=== PATIENT | female | born 1930 | race Caucasian/White ===

== ENCOUNTER 2017-04-28 08:50 | Inpatient (IN) | payer OTHER ==
[2017-04-28] MEDS ORDERED: NS 1,000 ML IV ONE (09:11)
--- NOTE | 2017-04-28 09:14 | EDPHY ---
H & P Stated Complaint: multiple syncope. Time Seen by Provider: 04/28/17 08:59 HPI/ROS: CHIEF COMPLAINT: Syncope HISTORY OF PRESENT ILLNESS: The patient is an 86-year-old female with a history of coronary disease with a single stent as well as atrial fibrillation on Eliquis. She is visiting from [place]. She flew in on Wednesday and went hiking and felt great yesterday. This morning she woke up at 5:30 a.m. and had a pre syncopal event while lying in bed. She then felt pressure in her abdomen and went and had a bowel movement. This happened again at 6 o'clock and at 6: 30 a.m.. She then felt better until around 8:00 a.m. when she was eating breakfast with her family at the table when she suddenly felt lightheaded again and this time she fainted. Her daughter caught her. She remained sitting and regained consciousness after about 10 seconds. No seizure-like activity. No vomiting. No bowel movements. The patient states that she did again feel some slight pressure in her abdomen like she could have a bowel movement. She denies headaches. She denies chest pain or shortness of breath. She denies palpitations. EMS found her feeling completely normal and with stable vital signs and EKG. She is currently asymptomatic. REVIEW OF SYSTEMS: Constitutional: denies: chills, fever, recent illness, recent injury EENTM: denies: blurred vision, double vision, nose congestion Respiratory: denies: cough, shortness of breath Cardiac: See HPI Gastrointestinal/Abdominal: denies: abdominal pain, diarrhea, nausea, vomiting, blood streaked stools Genitourinary: denies: dysuria, frequency, hematuria, pain Musculoskeletal: denies: joint pain, muscle pain Skin: denies: lesions, rash, jaundice, bruising Neurological: denies: headache, numbness, paresthesia, tingling, dizziness, weakness Hematologic/Lymphatic: denies: blood clots, easy bleeding, easy bruising Immunologic/allergic: denies: HIV/AIDS, transplant EXAM: GENERAL: Well-appearing, well-nourished and in no acute distress. HEAD: Atraumatic, normocephalic. EYES: Pupils equal round and reactive to light, extraocular movements intact, sclera anicteric, conjunctiva are normal. ENT: TMs normal, nares patent, oropharynx clear without exudates. Moist mucous membranes. NECK: Normal range of motion, supple without lymphadenopathy or JVD. LUNGS: Breath sounds clear to auscultation bilaterally and equal. No wheezes rales or rhonchi. HEART: Regular rate and rhythm without murmurs, rubs or gallops. ABDOMEN: Soft, nontender, normoactive bowel sounds. No guarding, no rebound. No masses appreciated. BACK: No CVA tenderness, no spinal tenderness, step-offs or deformities EXTREMITIES: Normal range of motion, no pitting or edema. No clubbing or cyanosis. NEUROLOGICAL: Cranial nerves II through XII grossly intact. Normal speech, normal gait. 5/5 strength, normal movement in all extremities, normal sensation PSYCH: Normal mood, normal affect. SKIN: Warm, dry, normal turgor, no visible rashes or lesions. Source: Patient, Family, EMS Exam Limitations: No limitations - Personal History Current Tetanus/Diphtheria Vaccine: Yes Current Tetanus Diphtheria and Acellular Pertussis (TDAP): Yes - Medical/Surgical History Hx Asthma: No Hx Chronic Respiratory Disease: No Hx Diabetes: No Hx Cardiac Disease: No Hx Renal Disease: No Hx Cirrhosis: No Hx Alcoholism: No Hx HIV/AIDS: No Hx Splenectomy or Spleen Trauma: No Other PMH: PMH: stents, a-fib, - Family History Significant Family History: No pertinent family hx - Social History Smoking Status: Never smoked Alcohol Use: Sober Drug Use: None Constitutional: Initial Vital Signs Temperature (C) 36.7 C 04/28/17 08:54 Heart Rate 54 L 04/28/17 08:54 Respiratory Rate 18 04/28/17 08:54 Blood Pressure 176/86 H 04/28/17 08:54 O2 Sat (%) 97 04/28/17 08:54 O2 Delivery Mode Room Air Allergies/Adverse Reactions: Sulfa (Sulfonamide Antibiotics) Allergy (Verified 04/28/17 09:02) Home Medications: Medication Instructions Recorded Apixaban [Eliquis] 5 mg PO BID 04/28/17 Aspirin [Aspirin 81mg (*)] 81 mg PO DAILY 04/28/17 Atenolol [Tenormin 25 mg (*)] 25 mg PO DAILY 04/28/17 Benazepril HCl [Lotensin (*)] 20 mg PO DAILY 04/28/17 Diltiazem Cd [Cardizem ER 120 MG 120 mg PO DAILY 04/28/17 (*)] Ezetimibe [Zetia 10 MG (*)] 10 mg PO HS 04/28/17 Herbals/Supplements -Info Only 1 ea PO DAILY 04/28/17 LORazepam [Ativan (*)] 0.5 mg PO DAILY PRN 04/28/17 Pravastatin Sodium 10 mg PO HS 04/28/17 Medical Decision Making - Diagnostics EKG Interpretation: An EKG obtained and was read and documented in trace view. Please see trace view for full reading and report. Sinus rhythm bradycardic, no acute ischemic changes Imaging: Discussed imaging studies w/ house calls nurse Radiologist ED Course/Re-evaluation: We discussed the lab and imaging results which are reassuring. The patient has been bradycardic occasionally into the 40s. Currently heart rate is 55 pressure blood pressures remained stable. We discussed the fact that this may be medication related. She is on atenolol and diltiazem. Her embedded hardware engineer in [place] noticed her slow heart rate in the past but she has never had syncopal events before. I recommended admission to the hospital for further observation and adjustment. Patient and family were initially hesitant but then agreed. 10:50 a.m. I discussed the case with Marge Salmon who agrees to admission to the PCU under Dr WILLIAM Lizama 11:10 a.m. the patient had a bradycardic episode down to the 20s and felt syncopal again but did not lose consciousness. It lasted for couple of seconds and was captured on the monitor Differential Diagnosis: Partial list of the Differential diagnosis considered include but were not limited to; bradycardia, syncope and although unlikely based on the history and physical exam, I also considered aneurysm, dissection, CVA, acute coronary disease. I discussed these differential diagnoses and the plan with the patient as well as the usual and expected course. The patient understands that the diagnosis is provisional and that in medicine we are not always correct and that further workup is often warranted. Usual and customary warnings were given. All of the patient's questions were answered. The patient was instructed to return to the emergency department should the symptoms at all worsen or return, otherwise to followup with the physician as we discussed. - Data Points Laboratory Results: Laboratory Results 04/28/17 09:20 04/28/17 09:20 Medications Given: Ezetimibe (Zetia) 10 mg PO HS PRAKASH Stop: 10/25/17 20:59 Last Admin: 04/28/17 20:52 Dose: 10 mg Lorazepam (Ativan) 0.5 mg PO DAILY PRN PRN Reason: ANXIETY/FLYING Stop: 10/25/17 14:23 Last Admin: 04/28/17 22:18 Dose: 0.5 mg Pravastatin Sodium (Pravachol) 10 mg PO HS PRAKASH Stop: 10/25/17 20:59 Last Admin: 04/28/17 20:52 Dose: 10 mg Discontinued Medications Sodium Chloride (Ns) 1,000 mls @ 0 mls/hr IV EDNOW ONE; Wide Open PRN Reason: Protocol Stop: 04/28/17 09:12 Last Admin: 04/28/17 10:13 Dose: 1,000 mls Dobutamine HCl 500 mg/ (Dextrose) 250 mls @ 0 mls/hr IV CONT PRAKASH; Titrate PRN Reason: Protocol Stop: 10/25/17 18:29 Last Admin: 04/28/17 18:36 Dose: 250 mls Departure - Departure Disposition: [facility] Acute Clinical Impression: Bradycardia Syncope Qualifiers: Syncope type: unspecified Qualified Code(s): R55 - Syncope and collapse Condition: Fair
--- NOTE | 2017-04-28 09:19 | CPEKG ---
Heart Rate: 51 RR Interval: 1176 P-R Interval: 188 QRSD Interval: 82 QT Interval: 476 QTC Interval: 439 P [place]: 55 QRS [place]: -19 T Wave [place]: 41 EKG Severity - OTHERWISE NORMAL ECG - EKG Impression: SINUS RHYTHM EKG Impression: BORDERLINE LEFT AXIS DEVIATION Electronically Signed By: Gurdeep Jamison 28-Apr-2017 09:46:48
[2017-04-28 09:23] LABS: % IMMATURE GRANULYOCYTES 0.2 % (0.0-1.1); ABSOLUTE IMMATURE GRANULOCYTES 0.01 10^3/uL (0.00-0.10); ADD DIFF? NO; ADD MORPH? NO; ADD SCAN? NO; ATYPICAL LYMPHOCYTE FLAG 10 (0-99); FRAGMENT RBC FLAG 0 (0-99); HEMATOCRIT 44.2 % (38.0-47.0); HEMOGLOBIN 15.6 g/dL (12.6-16.3); LEFT SHIFT FLG 0 (0-99); LIPEMIA HEMOLYSIS FLAG 90 (0-99); MEAN CELL HEMOGLOBIN 32.3 pg (27.9-34.1); MEAN CELL HEMOGLOBIN CONCENTR. 35.3 g/dL (32.4-36.7); MEAN CELL VOLUME 91.5 fL (81.5-99.8); MEAN PLATELET VOLUME 11.7 fL (8.7-11.7); PLATELET CLUMPS FLAG 0 (0-99); PLATELET COUNT 225 10^3/uL (150-400); RED BLOOD CELL COUNT 4.83 10^6/uL (4.18-5.33); RED CELL DISTRIBUTION WIDTH 12.6 % (11.5-15.2)
[2017-04-28 09:32] LABS: INR 1.26 (0.83-1.16); PROTIME(PATIENT) 15.8 SEC (12.0-15.0)
[2017-04-28 09:33] LABS: APTT 32.4 SEC (23.0-38.0)
[2017-04-28 09:37] LABS: ALANINE AMINOTRANSFERASE 36 IU/L (9-52); ALBUMIN 4.8 g/dL (3.5-5.0); ALKALINE PHOSPHATASE 70 IU/L (38-126); ANION GAP 14 mEq/L (8-16); ASPARTATE AMINOTRANSFERASE 30 IU/L (14-46); BILIRUBIN,TOTAL 0.6 mg/dL (0.1-1.4); BILIRUBIN-UNCONJUGATED 0.6 mg/dL (0.0-1.1); CALCIUM 9.5 mg/dL (8.5-10.4); CARBON DIOXIDE 25 mEq/l (22-31); CHLORIDE 103 mEq/L (97-110); CREATININE 0.7 mg/dL (0.6-1.0); GLOMERULAR FILTRATION RATE > 60; GLUCOSE 94 mg/dL (70-100); POTASSIUM 3.9 mEq/L (3.5-5.2); SODIUM 142 mEq/L (134-144); TOTAL PROTEIN 7.4 g/dL (6.3-8.2)
[2017-04-28] MEDS ORDERED: IOPAMIDOL (ISOVUE 370) 100 ML BTL IV ONE (09:42)
[2017-04-28 09:48] LABS: TROPONIN I < 0.012 ng/mL (0.000-0.034)
[2017-04-28] MEDS ORDERED: ONDANSETRON 4 MG/2 ML VIAL IVP PRN (11:24)
[2017-04-28] MEDS ORDERED: ACETAMINOPHEN 325 MG TAB PO PRN (11:24)
[2017-04-28] MEDS ORDERED: ONDANSETRON DISINTEGRATING 4 MG TAB PO PRN (11:24)
[2017-04-28] MEDS ORDERED: ATROPINE SULFATE 1 MG/10 ML SYR IVP PRN (14:26)
[2017-04-28] MEDS ORDERED: ATROPINE SULFATE 1 MG/10 ML SYR ONE (14:55)
--- NOTE | 2017-04-28 15:25 | GHP ---
[f rep st] HISTORY AND PHYSICAL DATE OF ADMISSION: 04/28/2017 CHIEF COMPLAINT: Syncope. HISTORY OF PRESENT ILLNESS: An 86-year-old female with a history of atrial fibrillation status post cardioversion in June of 2016, on Eliquis, atenolol and diltiazem CD, who presents after arriving from [place] visiting her daughter 48 hours ago. The patient reports she was in her normal state of health yesterday, took a long walk with her daughter without notable dyspnea, palpitations, chest pa in, dizziness or nausea. The patient ate a normal dinner, went to sleep. When she woke up this morn ing, she had an uncomfortable sensation in her abdomen, felt like she was going to pass out but did n ot, then went and passed a very large soft stool and felt better. Then commenced to go down to the [facility] table, discussed her symptoms with her daughter, began to eat breakfast and take her daily m edications when the patient lost consciousness, witnessed in front of her daughter. She came to with in seconds, and was not disoriented when she came to. Denied any associated chest pain, denied palpi tations, denied shortness of breath, denied nausea, denied vision changes. The patient reports that she had atrial fibrillation with rapid rates that she could feel, which led ultimately to her cardiov ersion in June. Since that time, reports that she had a couple of episodes of what felt to be pal pitations that were self-limited, lasting only minutes. The patient's watch crystal edge grinder was aware, sent h er with a Holter monitor, which apparently showed some bradycardia while she slept, otherwise no conc erning rhythm abnormalities. The patient denies any active symptoms of heart failure, denies orthopn ea, lower extremity edema, PND, or loss of energy. [facility] patient described sensation of upset stomach, and then had witnessed bradycardic episode with her heart rate slowing in sinus from the 60s down into the 20s with near loss of consciousness. The pat ient then recovered both her heart rate and consciousness while hooked to the core cart on pacer pads . The patient came to, was not confused, denied chest pain, denied any previous associated symptoms. PAST MEDICAL HISTORY: 1. Atrial fibrillation, status post cardioversion June 2016, on anticoagulation. 2. Restless legs syndrome. 3. Bladder incontinence, chronic. SOCIAL HISTORY: Patient lives in [place]. Denies tobacco, alcohol or illicit drugs. FAMILY HISTORY: Negative for any known cardiac arrhythmias. ADVANCED DIRECTIVES: Patient is full cor, full tube. Her daughter would be her medical decision alvaro er. REVIEW OF SYSTEMS: A 10-point review of systems is negative with the exception of that reported in t he HPI. PHYSICAL EXAMINATION: VITAL SIGNS: Blood pressure 153/73, heart rate 64, respiratory rate 18, satur ating 97% on room air, 36.7. GENERAL: This is a thin elderly female, lying flat in bed. HEENT: No table for dry mucous membranes. Eye exam is negative for any icterus. CARDIAC: Patient is regular rhythm, bradycardic, with a quiet systolic murmur heard best at the left upper sternal border. PULMO NARY: Patient is clear to auscultation bilaterally. No rales, rhonchi, or wheezing with good respir atory effort. GASTROINTESTINAL: Positive bowel sounds. Abdomen is soft and nontender. MUSCULOSKEL ETAL: Negative for any lower extremity edema. SKIN: Negative for any rashes. NEUROLOGIC: She is alert and oriented x3. PSYCHIATRIC: She is pleasant and cooperative on interview and examination. DATA: EKG, which I personally reviewed and interpreted, shows sinus rhythm, leftward axis deviation, with no acute ST-T changes. LABORATORY: White count 4.8, hematocrit 44.2, platelets of 223, troponin less than 0.012, creatinine of 0.7, TSH is 3.2. ASSESSMENT AND PLAN: This is an 86-year-old female, presenting with syncope. 1. Acute syncope, suspect secondary to bradycardia after the episode I witnessed in the emergency de partment. Causes of bradycardia I suspect are likely related to her atenolol and long-acting diltiaz em. Even during her bradycardia episode the patient's QRS complex was narrow and normal. The patien bethany unfortunately took both her atenolol and diltiazem CD this morning. We will obviously hold those u mirela admission. I have asked the watch crystal edge grinder to consult and monitor. Patient has transcutaneous pac ing pads on, and we will make sure she has atropine at the bedside in case we have additional episode s while inpatient. Patient will be on telemetry overnight. 2. Symptomatic bradycardia, as described above. EKG shows normal sinus with narrow QRS complex, no acute ST-T changes. My suspicion for cardiac ischemia is low. TSH is normal. Will order a transtho racic echocardiogram and consult Cardiology for any additional management recommendations. 3. Restless leg. Will continue patient's home medications once reconciled. 4. Chronic bladder incontinence. The patient does not have any symptoms of dysuria, no leukocytosis or fever. Low suspicion that a urinary tract infection is contributing to her presentation. PROPHYLAXIS: Patient is on chronic anticoagulation, which we will continue. DIET: Cardiac. DISPOSITION: I expect in less than 2 midnights, if the patient remains stable on monitoring overnigh t and we see improvement in her heart rates off medications. I have discussed the case with the [facility] room physician as well as Cardiology. Patient will be triaged to the PCU for monitoring and ca rdiac care. /[id number]/MODL
--- NOTE | 2017-04-28 17:42 | ECHO ---
[email or web address] [address] [address] Main: [phone] Fax: Transthoracic Echocardiogram Name: ORVILLE EATON MR#: [id number] Study Date: 04/28/2017 Study Time: 04:19 PM Date of : 1930 Age: 86 year(s) Height: 162.6 cm (64 in.) Weight: 67.13 kg (148 lb.) BSA: 1.72 m2 Gender: Female Examination: Echo Indication: Bradycardia Image Quality: Contrast: Requested by: Dariela Lizama BP: 119 mmHg/68 mmHg Heart Rate: Rhythm: Indication: Bradycardia Procedure Staff Rug Dyer: Dave Corral Reading Physician: Sumit Villanueva Requesting Provider: Conclusions: Normal size left ventricle. EF is 70 %. The left atrium is moderately dilated. Mild mitral valve leaflet calcification is present. Mild mitral valve regurgitation is present. The aortic valve is tri-leaflet. Mild aortic cusp calcification is noted. Mild aortic valve regurgitation is present. No old studies for comparison Measurements: Chambers Valvular Assessment AV/MV Valvular Assessment TV/PV Normal Normal Normal Name Value Range Name Value Range Name Value Range Ao Sheryl (MM): 3.3 cm (2.2 cm-3.7 AV Vmax: 1.36 m/s (1 m/s-1.7 TR Vmax: 2.85 mm/s ( - ) cm) m/s) TR PGmax: 32 mmHg ( - ) IVSd (2D): 1.0 cm (0.6 cm-1.1 AV maxP mmHg ( - ) syst. PAP: 37 mmHg ( - ) cm) LVOT Vmax: 0.83 m/s (0.7 m/s-1.1 PV Vmax: 0.59 m/s (0.6 m/s-0.9 LVDd (2D): 4.4 cm (3.9 cm-5.3 m/s) m/s) cm) AR (PHT): 842 ms ( - ) PV PGmax: 1 mmHg ( - ) LVDs (2D): 2.6 cm (2.1 cm-4 MV E Vmax: 0.95 m/s ( - ) cm) MV A Vmax: 0.33 m/s ( - ) LVPWd (2D): 1.1 cm ( - ) MV E/A: 2.88 ( - ) LVEF (2D): 70 (>=54 %) Continued Measurements: Chambers Valvular Assessment AV/MV Valvular Assessment TV/PV Name Value Name Value Name Value Patient: ORVILLE EATON Study Date: 04/28/2017 Page 1 of 2 04:19 PM LADs Lon.1 cm MV E/E' Septal: 16.00 CVP (est.): 5 mmHg LA Area: 24.0 cm2 MV E/E' Lateral: 10.60 LA Volume: 76 ml AR Vmax: 3.50 cm/s LA Volume Index: 44.2 ml/m2 Findings: Left Ventricle: Normal size left ventricle. No LV hypertrophy. Normal global systolic LV function. EF is 70 %. No regional wall motion abnormality. Diastolic dysfunction is present. . Right Ventricle: Normal size right ventricle. Normal RV function. Left Atrium: The left atrium is moderately dilated. Right Atrium: The right atrium is normal in size. Mitral Valve: Mild mitral valve leaflet calcification is present. Mild mitral valve regurgitation is present. Aortic Valve: The aortic valve is tri-leaflet. Mild aortic cusp calcification is noted. Mild aortic valve regurgitation is present. Tricuspid Valve: Mild tricuspid regurgitation is present. The pulmonary artery pressure is normal. Pulmonic Valve: The pulmonic valve is normal in appearance and function. Aorta: The aorta is normal. Pericardium: No pericardial effusion. (No Signature Object) Patient: ORVILLE EATON Study Date: 04/28/2017 Page 2 of 2 04:19 PM [id number]
[2017-04-28] MEDS ORDERED: DOBUTamine 500 MG in D5W 250 ML IV SCH (18:30)
--- NOTE | 2017-04-28 18:37 | PDPROPOC ---
Sedation Plan of Care Sedation Plan of Care: vital signs stable, mental status noted, patient educated of risks, benefits, alternatives, patient can tolerate sedation ASA Classification: ASA 3 Planned drugs: fentanyl, midazolam Mallampati Score: Class 3 Mallampati Reference Image: Patient passed 3-3-2 rule?: Yes
[2017-04-28 20:44] LABS: COLOR YELLOW; LEUKOCYTE ESTERASE,URINE 2+ (NEGATIVE); NITRITE,URINE POSITIVE (NEGATIVE)
[2017-04-28 20:49] LABS: BACTERIA 1+ /hpf (NONE SEEN); MUCUS TRACE /lpf (NONE-1+); WBC,URINE 50-182 /hpf (0-3)
[2017-04-28] MEDS: PRAVASTATIN SODIUM 10 MG TAB PO SCH (20:52)
[2017-04-28] MEDS: EZETIMIBE 10 MG TAB PO SCH (20:52)
[2017-04-28] MEDS ORDERED: APIXABAN 5 MG TAB PO SCH (21:00)
--- NOTE | 2017-04-28 21:02 | GCON ---
[f rep st] CONSULTATION DATE OF CONSULTATION: 04/28/2017 HISTORY OF PRESENT ILLNESS: This is an 86-year-old female with a past history of atrial fibrillation , status post cardioversion in June of 2016, on Eliquis, atenolol, and diltiazem CD, who is dominga hassan her daughter from [facility]. The patient reports that she was in her normal state of healt h yesterday and took a long walk without notable dyspnea, palpitations, chest pain, dizziness, or corrina sea. She had a normal dinner and went to bed. When she woke up in the morning, she had an uncomfort able sensation in her abdomen and felt like she was going to pass out, but she did not, and then had a large bowel movement. She felt better after that. Then, her daughter and son-in-law woke up. The y were discussing it at the breakfast table when she decided to write down her symptoms and what had transpired until then. At this point in time, she lost consciousness in front of her daughter and th en came to within moments. She was not disoriented. Within 5 minutes, she was back to feeling lea l. She denied any chest pain, palpitations, or shortness of breath associated. There has been no re cent change in medications. She came to the emergency room, where we noted another episode of slow h eart rate and dizziness, but she did not pass out. Later on this evening, the patient was talking to me and discussing the need for a pacemaker, at which point in time she started saying that she was n ot feeling very well. The heart rate had dropped from a baseline of 56 to 39. Then, she went into a systole, at which point in time, I started CPR. She lost consciousness. Within moments of starting CPR, she came to and was back to being normal. The telemonitor recorded asystole, followed by recove ry of the heart rate. The patient denies any current chest pain or palpitations. PAST MEDICAL HISTORY: AFib, status post cardioversion in 2016, on Eliquis, restless neck syndrome, s tatus post PCI with stent. SOCIAL HISTORY: Born and brought up in [facility]. Lives in [place], [place]. Denies alco hol use, tobacco abuse, or illicit drugs. FAMILY HISTORY: Negative for any cardiac issues. REVIEW OF SYSTEMS: Other than the above, negative. ALLERGIES: None. PHYSICAL EXAMINATION: VITAL SIGNS: Blood pressure of 153/73, pulse of 64, respiratory rate of 18. GENERAL: The patient is a thin, elderly female, lying flat in bed. HEENT: Notable for dry mucous m embranes. Eye exam negative for any icterus. CHEST: Good air entry bilaterally, equal. No rales, rhonchi, or rub. HEART: S1, S2 regular. Systolic ejection murmur noted. ABDOMEN: Soft, nontender , nondistended. Bowel sounds present. EXTREMITIES: No edema. No clubbing. NEUROLOGIC: Alert and oriented x3. PSYCHIATRIC: Pleasant and cooperative. DIAGNOSTIC DATA: EKG shows a sinus rhythm and left axis deviation; no ST changes. Telemonitor shows episodes of bradycardia and asystole, with good recovery. LABORATORY DATA: White count is normal. IMPRESSION AND PLAN: This is an 86-year-old female with episodes of syncope associated with asystole . She has been on the same dose of beta kimi and calcium channel kimi. Despite that, she is b eginning to have these episodes. 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 In view of this, t he patient needs a pacemaker. I have explained the risks and benefit of the procedure. I am especia lly concerned about her being on Eliquis, and I have explained to her the risks of the procedure. Maria Isabel valentine understands it, and is agreeable to it. We will implant a dual-chamber pacemaker in the morning. /[id number]/MODL
[2017-04-28] MEDS: LORazepam 0.5 MG TAB PO PRN (22:18)
[2017-04-29 03:26] LABS: % IMMATURE GRANULYOCYTES 0.2 % (0.0-1.1); ABSOLUTE IMMATURE GRANULOCYTES 0.01 10^3/uL (0.00-0.10); ADD DIFF? NO; ADD MORPH? NO; ADD SCAN? NO; ATYPICAL LYMPHOCYTE FLAG 0 (0-99); FRAGMENT RBC FLAG 0 (0-99); HEMATOCRIT 35.2 % (38.0-47.0); HEMOGLOBIN 11.7 g/dL (12.6-16.3); LEFT SHIFT FLG 0 (0-99); LIPEMIA HEMOLYSIS FLAG 80 (0-99); MEAN CELL HEMOGLOBIN 30.4 pg (27.9-34.1); MEAN CELL HEMOGLOBIN CONCENTR. 33.2 g/dL (32.4-36.7); MEAN CELL VOLUME 91.4 fL (81.5-99.8); MEAN PLATELET VOLUME 11.6 fL (8.7-11.7); PLATELET CLUMPS FLAG 20 (0-99); PLATELET COUNT 162 10^3/uL (150-400); RED BLOOD CELL COUNT 3.85 10^6/uL (4.18-5.33); RED CELL DISTRIBUTION WIDTH 12.6 % (11.5-15.2)
[2017-04-29 03:42] LABS: ALANINE AMINOTRANSFERASE 36 IU/L (9-52); ALBUMIN 3.1 g/dL (3.5-5.0); ALKALINE PHOSPHATASE 52 IU/L (38-126); ANION GAP 9 mEq/L (8-16); ASPARTATE AMINOTRANSFERASE 21 IU/L (14-46); BILIRUBIN,TOTAL 0.5 mg/dL (0.1-1.4); CALCIUM 8.8 mg/dL (8.5-10.4); CARBON DIOXIDE 23 mEq/l (22-31); CHLORIDE 110 mEq/L (97-110); CREATININE 0.7 mg/dL (0.6-1.0); GLOMERULAR FILTRATION RATE > 60; GLUCOSE 100 mg/dL (70-100); POTASSIUM 3.4 mEq/L (3.5-5.2); SODIUM 142 mEq/L (134-144); TOTAL PROTEIN 5.7 g/dL (6.3-8.2)
[2017-04-29 04:07] LABS: INR 1.23 (0.83-1.16); PROTIME(PATIENT) 15.5 SEC (12.0-15.0)
[2017-04-29 04:08] LABS: APTT 28.1 SEC (23.0-38.0)
[2017-04-29] MEDS ORDERED: BACITRACIN IRRIGATION/NS 50,000 UNITS/1,000 ML BTL IRR ONE (06:00)
[2017-04-29] MEDS ORDERED: ceFAZolin 2 GM/SWFI 2 GM/20 ML SYR IVP ONE (06:00)
[2017-04-29] MEDS ORDERED: NS 1,000 ML IV ONE (06:00)
--- NOTE | 2017-04-29 07:36 | PDPROPOC ---
Sedation Plan of Care Sedation Plan of Care: mental status noted, patient educated of risks, benefits , alternatives, patient can tolerate sedation ASA Classification: ASA 3 Planned drugs: fentanyl, midazolam Mallampati Score: Class 3 Mallampati Reference Image: Patient passed 3-3-2 rule?: Yes
[2017-04-29] MEDS ORDERED: fentaNYL 100 MCG/2 ML INJ ONE (07:37)
[2017-04-29] MEDS ORDERED: LIDOCAINE 1% 300 MG/30 ML SDV ONE (07:37)
[2017-04-29] MEDS ORDERED: MIDAZOLAM 2 MG/2 ML VIAL ONE (07:37)
[2017-04-29] MEDS ORDERED: LIDO/EPI 1% **for epidural** 30 ML SDV ONE (07:38)
[2017-04-29] MEDS ORDERED: BUPIVACAINE 0.5% 30 ML SDV ONE (07:38)
[2017-04-29] MEDS ORDERED: IOPAMIDOL (ISOVUE-300) 150 ML BTL ONE (07:39)
[2017-04-29] MEDS ORDERED: Herbals/Supplements -Info Only PO SCH (09:00)
--- NOTE | 2017-04-29 09:18 | CPEKG ---
Heart Rate: 60 RR Interval: 1000 P-R Interval: 212 QRSD Interval: 82 QT Interval: 460 QTC Interval: 460 QRS [place]: -18 T Wave [place]: 14 EKG Severity - ABNORMAL ECG - EKG Impression: ATRIAL-PACED RHYTHM Electronically Signed By: Sterling Trimble 29-Apr-2017 17:37:47
[2017-04-29] MEDS: DILTIAZEM CD 120 MG CAP PO SCH (11:24)
[2017-04-29] MEDS: BENAZEPRIL HCL 20 MG TAB PO SCH (11:24)
[2017-04-29] MEDS: ATENOLOL 25 MG TAB PO SCH (11:24)
--- NOTE | 2017-04-29 11:32 | CPEKG ---
Heart Rate: 67 RR Interval: 896 P-R Interval: 204 QRSD Interval: 78 QT Interval: 432 QTC Interval: 456 P [place]: 69 QRS [place]: -2 T Wave [place]: 35 EKG Severity - NORMAL ECG - EKG Impression: SINUS RHYTHM EKG Impression: Q waves inferior and anteriorly, consider old inferior and anterior MIs. Electronically Signed By: Sterling Trimble 29-Apr-2017 17:37:28
[2017-04-29] MEDS: ASPIRIN 81 MG CHEWABLE TAB PO SCH (13:22)
--- NOTE | 2017-04-29 14:57 | HOSPPROG ---
Hospitalist Progress Note Assessment/Plan: # Acute Tachy-lalo syndrome - pt hostrically cardioverted for rapid AFib presents yesterday with syncope 2/2 bradycardia patient with two monitored episodes one of bradycardia in 20's and second of asytole requiring brief CPR TELE (personally reviewed and interpreted) sinus 70's overnight on dobutamine - oxygen saturations 94% on RA creatinine normal this am - NPO for pacemaker today - cardiology wants Atenolol and diltiazem continued # Atrial fibrillation - will resume eliquis tonight # chronic urinary incontinence - UA abnormal on admit - awaiting culture results # restless leg syndrome - cont home meds # proph - eliquis # diet- cardiac # dispo - > 2MN as requires post pacemaker monitoring I have discussed the case with Cardiology - pacemaker today - continue home meds otherwise Subjective: feels tired- constipated Objective: Vital Signs Temp Pulse Resp BP Pulse Ox 36.5 C 68 21 H 145/68 H 96 04/29/17 10:42 04/29/17 13:00 04/29/17 10:42 04/29/17 13:00 04/29/17 10:42 Laboratory Results 04/29/17 03:20 04/29/17 03:20 04/28/17 04/29/17 04/30/17 05:59 05:59 05:59 Intake Total 1950 Output Total 1750 850 Balance 200 -850 PT 15.5 SEC (12.0-15.0) H 04/29/17 03:20 INR 1.23 (0.83-1.16) H 04/29/17 03:20 - Physical Exam Constitutional: no apparent distress Eyes: anicteric sclera Ears, Nose, Mouth, Throat: moist mucous membranes Cardiovascular: regular rate and rhythym, systolic murmur Respiratory: no respiratory distress Gastrointestinal: normoactive bowel sounds Genitourinary: no bladder fullness Skin: warm Musculoskeletal: No asymmetric calves Neurologic: AAOx3 Psychiatric: interacting appropriately, not anxious Lymph, Heme, Immunologic: no cervical LAD ICD10 Worksheet Patient Problems: Problems Problem Status Onset Bradycardia Acute Syncope Acute
[2017-04-29] MEDS ORDERED: PROTOCOL POTASSIUM 1 DOSE MISC PRN (14:59)
[2017-04-29] MEDS ORDERED: POTASSIUM CL 10 MEQ TAB PO ONE ×2 (16:08→21:54)
--- NOTE | 2017-04-29 16:35 | EPPROC ---
Electrophysiology Procedure Note: PROCEDURE PERFORMED: Implantation of an A/V Pacemaker Fluoroscopy INDICATION: This is a 86 yr old with episodes of syncope. She was admitted and her episodes correlated with asystole lasting upto 10sec. In view of this it was decided to implant dual chamber pacemaker. PROCEDURE NOTE: Patient presented to the cardiac catheterization laboratory in a fasting, post absorptive state. Cardiac cheesemaking laborer nurse administered moderate sedation. The left infraclavicular area was prepped and draped in the usual sterile fashion. Lidocaine plus bupivacaine was used for local anesthesia. Left subclavian venography was performed by injection of iodinated contrast into the left antecubital vein. This was done to assure patency of the vein and also to assess for any anatomical aberrations. Using a combination of blunt and sharp dissection and electrocautery, the dissection was carried down to the prepectoral fascia. All bleeding was controlled with electrocautery. Fluoroscopy was utilized during the entire procedure for venous access and placement of the leads. Using the usual technique, left cephalic vein was accessed and a glidewire was placed. Through this initially a 9F and later a 7F sheath was passed. Placement of the guidewires into the venous system was confirmed by low- pressure blood return and also by visualizing the guidewires advancing into the inferior vena cava. A purse string suture was applied around the guidewires. An active fixation ventricular lead was advanced into the right ventricular apex and screwed in place. An active fixation atrial lead was advanced into the right atrial appendage and screwed in place. The peel away sheaths were removed. Pacing thresholds, sensing parameters and lead impedances were measured. There was no diaphragmatic stimulation at maximum output. The leads were sutured to the prepectoral fascia with 3 nonabsorbable sutures each. The pocket was created and it was flushed using antibiotic solution. It was inspected for any bleeding. The leads were attached to the pacemaker securely. The pacemaker was inserted into the pocket and secured in place with a nonabsorbable suture. Fluoroscopy was performed in PATEL and SCARLETT planes to verify right-sided placement of the leads. Also fluoroscopy of the pacemaker pocket was performed. The pacemaker pocket was closed in 3 layers with absorbable vicryl sutures. Steristrips were placed. Appropriate dressing was applied. The patient left the cardiac catheterization laboratory in stable condition. Serial Numbers: Device: St Neto Assurity MRI SN [id number] Atrial Lead: St Neto Tendril STS SN [id number] Ventricular Lead: St Neto Tendril STS SN [id number] Stimulation Thresholds & Impedance Measurements: Atrial Lead 2.7mV, 1@0.5ms, 405Ohms Ventricular Lead 12.1mV, 0.4@0.5ms, 610Ohms Dirk Pacing Parameters Pacing mode: DDD Lower rate: 60 Upper tracking rate: 130 Upper sensor rate: 130 Patient Problems: Problems Problem Status Onset Bradycardia Acute Syncope Acute
--- NOTE | 2017-04-29 17:27 | PDMN ---
Medical Necessity Medical necessity: Change to IP, as of 04/29/17, per MD, for ongoing eval/tx of acute tachy/lalo syndrome s/p cardioversion for rapid AFIB & 2 monitored episodes of bradycardia & asystole requiring brief CPR & post pacemaker monitoring; hx AFIB; per progress note & order 04/29/17
[2017-04-29 19:40] LABS: POTASSIUM 3.9 mEq/L (3.5-5.2)
[2017-04-29] MEDS: APIXABAN 5 MG TAB PO SCH (20:21)
[2017-04-29] MEDS: EZETIMIBE 10 MG TAB PO SCH (20:21)
[2017-04-29] MEDS: PRAVASTATIN SODIUM 10 MG TAB PO SCH (20:22)
[2017-04-29] MEDS: LORazepam 0.5 MG TAB PO PRN (22:06)
[2017-04-30 05:07] LABS: % IMMATURE GRANULYOCYTES 0.3 % (0.0-1.1); ABSOLUTE IMMATURE GRANULOCYTES 0.02 10^3/uL (0.00-0.10); ADD DIFF? NO; ADD MORPH? NO; ADD SCAN? NO; ATYPICAL LYMPHOCYTE FLAG 0 (0-99); FRAGMENT RBC FLAG 0 (0-99); HEMATOCRIT 40.3 % (38.0-47.0); HEMOGLOBIN 13.6 g/dL (12.6-16.3); LEFT SHIFT FLG 0 (0-99); LIPEMIA HEMOLYSIS FLAG 80 (0-99); MEAN CELL HEMOGLOBIN 31.1 pg (27.9-34.1); MEAN CELL HEMOGLOBIN CONCENTR. 33.7 g/dL (32.4-36.7); MEAN PLATELET VOLUME 12.2 fL (8.7-11.7); PLATELET CLUMPS FLAG 0 (0-99); PLATELET COUNT 195 10^3/uL (150-400); RED BLOOD CELL COUNT 4.38 10^6/uL (4.18-5.33); RED CELL DISTRIBUTION WIDTH 12.7 % (11.5-15.2)
[2017-04-30 05:34] LABS: ANION GAP 8 mEq/L (8-16); CARBON DIOXIDE 25 mEq/l (22-31); CHLORIDE 111 mEq/L (97-110); CREATININE 0.7 mg/dL (0.6-1.0); GLOMERULAR FILTRATION RATE > 60; GLUCOSE 81 mg/dL (70-100); POTASSIUM 4.3 mEq/L (3.5-5.2); SODIUM 144 mEq/L (134-144)
[2017-04-30] MEDS: ASPIRIN 81 MG CHEWABLE TAB PO SCH (08:51)
[2017-04-30] MEDS: ATENOLOL 25 MG TAB PO SCH (08:51)
[2017-04-30] MEDS: APIXABAN 5 MG TAB PO SCH (08:51)
[2017-04-30] MEDS: BENAZEPRIL HCL 20 MG TAB PO SCH (08:53)
[2017-04-30] MEDS: DILTIAZEM CD 120 MG CAP PO SCH (08:55)
--- NOTE | 2017-04-30 10:04 | ASMTCMCOM ---
CM Note CM Note Notes: Pt is a 86 y/o female admitted w/ syncope and bradycardia. PT and OT have been ordered. CM awaiting recommendations from therapies. Needs are TBD at this time. CM available for d/c needs. Date Signed: 04/30/2017 10:03 AM Electronically Signed By:CRISTIAN Monzon
--- NOTE | 2017-04-30 11:02 | PDCARPN ---
Cardiology Progress Note Assessment/Plan: Assessment: Seen post Pacemaker placement. Doing well with no incision site bleeding. Mildly tender, with no induration or ecchymosis. Dual Chamber St Neto Pacemaker placed yesterday 04/29/17 by Sheng Mclaughlin MD Pacemaker Restrictions for [address] Mclaughlin. No lifting, pushing, pulling greater than 10 pounds, Avoid getting site and dressing wet, No use of left arm above shoulder level. Pacemaker St Neto- Dual Chamber pacemaker. Follow up at [facility] in one week for pacemaker check and wound check. at 12:45 at [facility]. BP check at that time. Follow up with Tucking Machine Operator in [facility] upon return home. Continue all medications. No medication changes per Dr Mclaughlin. Plan: Ok for discharge post Pacemaker placement. Follow up as outlined above. 04/30/17 10:58 Subjective: I feel great today. Up in room with no dizziness or lightheadedness. Mild PM site discomfort. Daughter at bedside. Left arm restrictions reviewed with she and Cecilia. She has been up to BR and walking with no problems. Reviewed/Discussed With: family Time Spent With Patient: 30 minutes. Objective: Vital Signs (8 Hrs) Temp Pulse Resp BP Pulse Ox 04/30/17 08:00 36.8 C 62 18 157/83 H 96 04/30/17 04:00 36.9 C 60 16 156/78 H 97 Intake/Output (24 Hrs) 04/29/17 04/30/17 05/01/17 05:59 05:59 05:59 Intake Total 3000 Output Total 2500 Balance 500 Intake: Oral (ml) 3000 Output: Urine (ml) 2500 Bedside Commode 1800 Toilet 700 Other: Number of Voids Toilet 2 Number of Stools Bedside Commode 1 Result Diagrams: 04/30/17 03:31 04/30/17 03:31 - Physical Exam Cardiovascular: regular rate and rhythm, no murmurs, no rubs, no gallops Peripheral Pulses: 2+: dorsalis-pedis (R), dorsalis-pedis (L) Respiratory: clear to auscultate bilat, no crackles, no wheezes Skin: warm, no edema, other (left pec site with no bleeding, induration, mild tenderness. Dressing in place. ) Neurologic: AAOx3 Psychiatric: cooperative, interactive ICD10 Worksheet Patient Problems: Problems Problem Status Onset Bradycardia Acute Dual chamber Pacemaker Acute Syncope Acute
[2017-04-30 11:39] VITALS: BP 144/81; PULSE 63; RESP 17; TEMP 98
[2017-04-30 12:30] VITALS: O2SAT 96
--- NOTE | 2017-04-30 12:39 | PDDCSUM ---
Discharge Summary Discharge Summary: DISCHARGE DIAGNOSES: -syncope due to bradycardia -atrial fibrillation, chronic paroxysmal with tachy-lalo syndrome -chronic anti coagulation for AFib -history of coronary artery disease and stent, stable at this time CONSULTANTS: Dr. Sheng Mclaughlin PROCEDURES: CT angiogram of chest abdomen pelvis Permanent Pacemaker placement HOSPITAL COURSE SUMMARY: This patient with long history of atrial fibrillation and has had prior history of syncope and some bradycardia. She comes in at this time after a syncope at home and had another syncope here in the hospital. She had pulses down into the 20s. She ruled out for myocardial infarction and did not have any heart failure. There was no evidence of infection. The patient is on beta-kimi and calcium channel kimi at home for AFib rate control. She was admitted to the hospital and treated with pressor for pulse management and after echocardiogram showed no concerning changes, she underwent placement of a permanent pacemaker. This was uncomplicated and the pacemaker is functioning normally at this time. Her hospital course has been otherwise unremarkable. At this time she has been given appropriate education regarding her pacemaker device, and post-operative care and wound management, arm restrictions. She is stable for discharge to home. PENDING TEST RESULTS: None MEDICATION CHANGES: None FOLLOW-UP PLAN: With Dr. cMlaughlin in 1 week in Cardiology Clinic. After that she will follow up with her primary precise winder back home in [facility] where she lives Greater than 35 minutes bedside and care coordination time today
--- NOTE | 2017-04-30 16:49 | ASDISCHSUM ---
Discharge Information Plan Status:Home with No Needs Medically Cleared to Leave:04/29/2017 Discharge Date:04/30/2017 02:35 PM CM D/C Disposition: ADT D/C Disposition:Home, Routine, Self-Care Projected Discharge Date:04/30/2017 12:00 AM Transportation at D/C: Discharge Delay Reason: Follow-Up Date:04/30/2017 12:00 AM Discharge Slot: Final Diagnosis: Placement Information Patient Contact Information Contact Name:KERRIE Relationship:Daughter Address: City: [facility] Phone: [facility] Code: Email: Financial Information Financial Class: Primary Plan Desc:MEDICARE INPATIENT Primary Plan Number:[id number] Secondary Plan Desc:HUMA[employer] Secondary Plan Number:[id number] Assessment Information LACE LACE Emergency dept visits in Answers: 1 last 6 months Score: 1 Date Signed: 04/28/2017 10:09 AM Electronically Signed By:Ghada Mauro RN LACE LACE Acuity / Level of Care Answers: Was the patient admitted to hospital via the emergency department? 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 PT and OT have been ordered. CM awaiting recommendations from therapies. Needs are TBD at this time. CM available for d/c needs. Date Signed: 04/30/2017 10:03 AM Electronically Signed By:CRISTIAN Monzon Intervention Information Intervention Type:*Occurence 72 Date of Service:04/28/2017 04:35 PM Patient Type:Inpatient Staff Member:MELINDA Izaguirre Courtney Hours: Discipline: Severity: Comment:
== END 2017-04-30 14:35 | disposition home or self-care (01) | DRG 244 ==
LOC: F2W 15:01 → F2N 19:11 → F2W 04-29 09:36 → OBSVTOIN 04-29 17:05
PROVIDERS: ADMIT Hospitalist; ATTEND Hospitalist
DX: I49.5 Sick sinus syndrome (principal); I48.91 Unspecified atrial fibrillation; I25.10 Atherosclerotic heart disease of native coronary artery without angina pectoris; G25.81 Restless legs syndrome; R32 Unspecified urinary incontinence; Z95.5 Presence of coronary angioplasty implant and graft; Z79.01 Long term (current) use of anticoagulants
CPT/HCPCS: 97161-GP; 97165-GO; C1769; C1785; C1898; G0378; G8978-GP-CH; G8979-GP-CH; G8980-GP-CH; G8987-GO-CI; G8988-GO-CI; G8989-GO-CI; J0461; J0690; J1250; J2250; J3010; Q9967

== ENCOUNTER 2017-05-04 18:27 | Emergency (ER) | payer OTHER ==
[2017-05-04 18:35] VITALS: O2SAT 95
--- NOTE | 2017-05-04 18:39 | EDPHY ---
H & P Stated Complaint: pacemaker placed thurs/bleeding around site/swelling/? hematoma Time Seen by Provider: 05/04/17 18:39 HPI/ROS: CHIEF COMPLAINT: Chest wall hematoma after pacemaker insertion HISTORY OF PRESENT ILLNESS: The patient presents to the ED with a chest wall hematoma which has developed around her recently inserted pacemaker. The patient is currently on Eliquis for atrial fibrillation. She has no history of cardiac surgery. The patient denies any lightheadedness, external bleeding or wound dehiscence. The patient is visiting from [place]. She is scheduled to have a nurse visit at the cardiology clinic at the end of the week. The patient denies any fever. She has noted some ecchymosis to her left breast. She denies additional acute complaints. REVIEW OF SYSTEMS: A comprehensive 10 point review of systems is otherwise negative aside from elements mentioned in the history of present illness. Source: Patient Exam Limitations: No limitations - Personal History Current Tetanus/Diphtheria Vaccine: Yes - Medical/Surgical History Hx Asthma: No Hx Chronic Respiratory Disease: No Hx Diabetes: No Hx Cardiac Disease: Yes Hx Renal Disease: No Hx Cirrhosis: No Hx Alcoholism: No Hx HIV/AIDS: No Hx Splenectomy or Spleen Trauma: No Other PMH: PMH: stents, a-fib, pacemaker/arthritis - Social History Smoking Status: Never smoked - Physical Exam Exam: General Appearance: Alert, no distress Eyes: Pupils equal and round no pallor or injection ENT, Mouth: Mucous membranes moist Respiratory: Pacemaker generator incision clean dry and intact, palpable subcutaneous hematoma approximately 1 cm in size surrounding the margin of the generator. Cardiovascular: Regular rate and rhythm Gastrointestinal: Abdomen is soft and nontender, no masses, bowel sounds normal Neurological: A&O, normal motor function, normal sensory exam, normal cranial nerves Skin: Ecchymosis to left breast Musculoskeletal: Neck is supple nontender Extremities: symmetrical, full range of motion Constitutional: Initial Vital Signs Temperature (C) 37 C 05/04/17 18:32 Heart Rate 65 05/04/17 18:32 Respiratory Rate 20 05/04/17 18:32 Blood Pressure 160/74 H 05/04/17 18:32 O2 Sat (%) 95 05/04/17 18:32 O2 Delivery Mode Room Air Allergies/Adverse Reactions: Sulfa (Sulfonamide Antibiotics) Allergy (Verified 05/04/17 18:29) Home Medications: Medication Instructions Recorded Apixaban [Eliquis] 5 mg PO BID 04/28/17 Aspirin [Aspirin 81mg (*)] 81 mg PO DAILY 04/28/17 Atenolol [Tenormin 25 mg (*)] 25 mg PO DAILY 04/28/17 Benazepril HCl [Lotensin (*)] 20 mg PO DAILY 04/28/17 Diltiazem Cd [Cardizem ER 120 MG 120 mg PO DAILY 04/28/17 (*)] Ezetimibe [Zetia 10 MG (*)] 10 mg PO HS 04/28/17 Herbals/Supplements -Info Only 1 ea PO DAILY 04/28/17 LORazepam [Ativan (*)] 0.5 mg PO DAILY PRN 04/28/17 Pravastatin Sodium 10 mg PO HS 04/28/17 Acetaminophen [Tylenol 325mg (*)] 650 mg PO Q4HRS PRN tab 04/30/17 Medical Decision Making ED Course/Re-evaluation: I discussed the case with Dr. Warren La from Cardiology. The patient will be discharged home and follow up with the Cardiology Clinic tomorrow for a pacemaker check. He has advise the patient to hold her next [address] If [address] Ma is unavailable to see the patient in the office tomorrow Dr. La has informed me that he will come from the hospital to evaluate the patient personally. The patient has no evidence of a postoperative infection, dehiscence or active bleeding. She is hemodynamically stable. Departure - Departure Disposition: Home, Routine, Self-Care Clinical Impression: Hematoma of pacemaker pocket Condition: Good Instructions: Hematoma (ED) Additional Instructions: 1. Please follow up tomorrow at [facility]. When you contact their office please let them know that Dr. La wanted you to be evaluated by Dr. Mclaughlin if available otherwise he would make arrangements to see you in clinic tomorrow. When you contact the office be sure to let them know you in the emergency department and this plan was discussed between the emergency room physician and Dr. La. 2. Please hold your next 2 doses of Eliquis. 3. Return to the ED for any bleeding or breakdown of the pacemaker incision. Referrals: Sheng Mclaughlin MD [Medical Doctor] - As per Instructions
[2017-05-04 19:34] VITALS: BP 155/86; PULSE 62; RESP 16; TEMP 97.5
== END 2017-05-04 19:34 | disposition home or self-care (01) ==
DX: T82.897A Other specified complication of cardiac prosthetic devices, implants and grafts, initial encounter (principal); Z79.82 Long term (current) use of aspirin; Z95.5 Presence of coronary angioplasty implant and graft; Y71.2 Prosthetic and other implants, materials and accessory cardiovascular devices associated with adverse incidents